=== PATIENT | male | born 1965 | race Caucasian/White ===

== ENCOUNTER 2023-11-12 05:42 | Emergency (ER) | payer BC ==
[2023-11-12 06:14] LABS: BASOPHILS # (AUTO) 0.1 10^3/uL (0.0-0.1); BASOPHILS % (AUTO) 0.7 %; EOSINOPHILS # (AUTO) 0.1 10^3/uL (0.0-0.7); EOSINOPHILS % (AUTO) 1.3 %; HCT - HEMATOCRIT 43.4 % (42.0-52.0); HGB - HEMOGLOBIN 14.3 g/dL (14.0-18.0); LYMPHOCYTES # (AUTO) 0.6 10^3/uL (1.5-3.5); LYMPHOCYTES % (AUTO) 6.8 %; MEAN CORPUSCULAR HEMOGLOBIN 29.9 pg (27.0-31.0); MEAN CORPUSCULAR HGB CONC 32.9 g/dL (32.0-36.0); MEAN CORPUSCULAR VOLUME 90.8 fL (80.0-94.0); MEAN PLATELET VOLUME 11.5 fL (7.4-11.4); MONOCYTES # (AUTO) 0.7 10^3/uL (0.0-1.0); MONOCYTES % (AUTO) 8.1 %; NEUTROPHILS # (AUTO) 6.9 10^3/uL (1.5-6.6); NEUTROPHILS % (AUTO) 82.9 %; PLT - PLATELET COUNT 176 10^3/uL (130-450); RED BLOOD COUNT 4.78 10^6/uL (4.70-6.10); RED CELL DISTRIBUTION WIDTH 13.2 % (12.0-15.0); WHITE BLOOD COUNT 8.3 x10^3/uL (4.8-10.8)
--- NOTE | 2023-11-12 06:17 | ED Physician Documentation ---
PD HPI ABD PAIN - Stated complaint Stated Complaint: ABD PX - Chief complaint Chief Complaint: Abd Pain - History obtained from History obtained from: Patient, Family - History of Present Illness Timing - onset: Enter time (2299), How many days ago (2) Timing - duration: Days (2) Timing - details: Abrupt onset Quality: Sharp, Pain Location: Epigastric Radiation: Chest Improved by: Other (nothing) Associated symptoms: Vomiting Similar symptoms before: Diagnosis (gall bladder problems) Recently seen: Not recently seen - Additional information Additional information: 58-year-old Bean Chandler has developed severe epigastric abdominal pain. He presents to the emergency department doubled over in pain and reports that this started at 2300 on Sunday. He indicates that he was down in [place] had lobster and oysters as well as some shrimp when he came home. He did have alcohol as well. He does not have a history of ulcer but he does have a history of prior cholecystectomy as well as appendectomy. Review of Systems Constitutional: denies: Fever Ears: denies: Ear pain Nose: denies: Congestion Throat: denies: Sore throat Respiratory: denies: Dyspnea, Cough GI: reports: Abdominal Pain, Nausea, Vomiting : denies: Dysuria, Frequency Skin: denies: Rash Musculoskeletal: denies: Neck pain, Back pain, Extremity pain Neurologic: denies: Generalized weakness, Focal weakness, Numbness PD PAST MEDICAL HISTORY - Past Medical History Cardiovascular: Arrhythmia, Other Endocrine/Autoimmune: Type 2 diabetes Psych: Depression Musculoskeletal: Gout Other Past Medical History: SVT - Past Surgical History Past Surgical History: Yes General: Cholecystectomy, Appendectomy - Present Medications Home Medications: Ambulatory Orders Medication Instructions Recorded Confirmed Bupropion HCl [Wellbutrin] 300 mg PO DAILY 04/27/14 11/12/23 Metformin HCl [Metformin ER 500 mg PO DAILY 11/12/23 11/12/23 Osmotic] allopurinoL [Allopurinol] 450 mg PO DAILY 11/12/23 11/12/23 - Allergies Allergies/Adverse Reactions: Allergies Allergy/AdvReac Type Severity Reaction Status Date / Time No Known Drug Allergies Allergy Verified 11/12/23 05:50 - Social History Does the pt smoke?: No Smoking Status: Never smoker Does the pt drink ETOH?: No Does the pt have substance abuse?: No - Immunizations Immunizations are current?: Yes PD ED PE NORMAL - Vitals Vital signs reviewed: Yes (Hypertensive mild) - General General: Alert and oriented X 3, Well developed/nourished, Other (58-year-old male laying in the position clutching his abdomen and moaning in pain) - HEENT HEENT: Atraumatic, PERRL, EOMI, Other (Dry mucous membranes) - Neck Neck: Supple, no meningeal sign, No bony TTP - Cardiac Cardiac: RRR, No murmur - Respiratory Respiratory: No respiratory distress, Clear bilaterally - Abdomen Abdomen: Normal bowel sounds, Soft, Non distended, No organomegaly, Other (There is specific epigastric tenderness to palpation without guarding or rebound.) - Back Back: No CVA TTP, No spinal TTP - Derm Derm: Normal color, Warm and dry, No rash - Extremities Extremities: No deformity, No edema - Neuro Neuro: Alert and oriented X 3, email campaign manager 2-12 intact, No motor deficit, No sensory deficit, Normal speech Eye Opening: Spontaneous Motor: Obeys Commands Verbal: Oriented GCS Score: 15 - Psych Psych: Normal mood, Normal affect Results - Vitals Vitals: Vital Signs - 24 hr 11/12/23 05:51 Temperature 36.4 C L Heart Rate 74 Respiratory 16 Rate Blood Pressure 149/77 H O2 Saturation 100 Oxygen O2 Source Room air - Labs Labs: Laboratory Tests 11/12/23 11/12/23 11/12/23 06:08 06:08 06:58 WBC 8.3 RBC 4.78 Hgb 14.3 Hct 43.4 MCV 90.8 MCH 29.9 MCHC 32.9 RDW 13.2 Plt Count 176 MPV 11.5 H Neut # (Auto) 6.9 H Lymph # (Auto) 0.6 L [place] # (Auto) 0.7 Eos # (Auto) 0.1 Baso # (Auto) 0.1 Absolute Nucleated RBC 0.00 Nucleated RBC % 0.0 Sodium 136 Potassium 3.9 Chloride 98 L Carbon Dioxide 26 Anion Gap 12.0 BUN 11 Creatinine 0.9 Estimated GFR (MDRD) 86 L Glucose 252 H Calcium 10.0 Total Bilirubin 4.9 H AST 637 H Alkaline Phosphatase 209 H Total Protein 7.2 Albumin 4.6 Globulin 2.6 Albumin/Globulin Ratio 1.8 Lipase 247 H Urine Color DARK YELLOW Urine Clarity CLEAR Urine pH 6.0 Ur Specific Concepcion >=1.030 H Urine Protein TRACE Urine Glucose (UA) 500 H Urine Ketones >=80 H Urine Occult Blood NEGATIVE Urine Nitrite NEGATIVE Urine Bilirubin LARGE H Urine Urobilinogen 2 H Ur Leukocyte Esterase NEGATIVE Ur Microscopic Review NOT INDICATED Urine Culture Comments NOT INDICATED PD Medical Decision Making - ED course Complexity details: reviewed old records, reviewed results, re-evaluated patient, considered differential, d/w patient, d/w family Reviewed Lab Results: We reviewed a complete blood count showing a normal white blood cell count normal hemoglobin hematocrit and platelets a urinalysis shows a specific gravity of 1.030 with glucose present ketones present and large bilirubin. Chemistries are pending with a lipase elevated to 247. Bili is elevated at 4.9. ED course: 58-year-old male with acute epigastric pain and vomiting is given a GI cocktail consisting of viscous lidocaine Mylanta in [place]af[place] with relief of his pain. He has had vomiting he has not noted any blood in the vomit and he has not noted any dark or tarry stool.He appears dehydrated and is administered intravenous saline as well as Protonix. The patient has improvement in his pain but his biochemical profile is concerning for potential of common duct stone and for pancreatitis. Further workup is indicated. An MRCP is ordered and care is turned over to Dr. Marco Salcedo. Departure - Departure Forms: PCP List
[2023-11-12] MEDS: ONDANSETRON 4 MG/2 ML VIAL IVP STA ×2 (06:23→13:22)
[2023-11-12] MEDS: LIDOCAINE VISCOUS 2% 15 ML ORAL SYRINGE MM STA (06:24)
[2023-11-12] MEDS: SUCRALFATE 1 GM/10 ML UDC PO STA (06:24)
[2023-11-12] MEDS: MAG HYDROX/AL HYDROX/SIMETH 30 ML UDC PO STA (06:24)
[2023-11-12] MEDS: SODIUM CHLORIDE 0.9% 1,000 ML IV STA (06:52)
[2023-11-12] MEDS: PANTOPRAZOLE 40 MG VIAL IVP STA (06:53)
[2023-11-12 07:04] LABS: BILIRUBIN,URINE LARGE (NEGATIVE); GLUCOSE, URINE (UA) 500 mg/dL (NEGATIVE); KETONES,URINE (UA) >=80 mg/dL (NEGATIVE); LEUKOCYTE ESTERASE, URINE NEGATIVE (NEGATIVE); NITRITE,URINE NEGATIVE (NEGATIVE); OCCULT BLOOD,URINE NEGATIVE (NEGATIVE); PROTEIN,URINE TRACE mg/dL (NEGATIVE); UROBILINOGEN,URINE 2 E.U./dL (NORMAL)
[2023-11-12 07:07] LABS: CLARITY,URINE CLEAR (CLEAR)
[2023-11-12 07:39] LABS: ALBUMIN 4.6 g/dL (3.2-5.5); ALBUMIN/GLOBULIN RATIO 1.8 (1.0-2.2); BILIRUBIN,TOTAL 4.9 mg/dL (0.2-1.0); CREATININE 0.9 mg/dL (0.6-1.3); POTASSIUM 3.9 mmol/L (3.5-4.5); TOTAL PROTEIN 7.2 g/dL (6.4-8.9)
[2023-11-12] MEDS ORDERED: GADOTERATE MEGLUMINE 5 MMOL/10 ML VIAL ONE (08:24)
[2023-11-12] MEDS ORDERED: GADOTERATE MEGLUMINE 10 MMOL/20 ML VIAL ONE (08:24)
[2023-11-12 13:17] LABS: BASOPHILS % (AUTO) 0.6 %; EOSINOPHILS % (AUTO) 0.6 %; HCT - HEMATOCRIT 42.3 % (42.0-52.0); HGB - HEMOGLOBIN 13.8 g/dL (14.0-18.0); LYMPHOCYTES # (AUTO) 0.9 10^3/uL (1.5-3.5); LYMPHOCYTES % (AUTO) 12.7 %; MEAN CORPUSCULAR HEMOGLOBIN 29.8 pg (27.0-31.0); MEAN CORPUSCULAR HGB CONC 32.6 g/dL (32.0-36.0); MEAN CORPUSCULAR VOLUME 91.4 fL (80.0-94.0); MEAN PLATELET VOLUME 11.9 fL (7.4-11.4); MONOCYTES # (AUTO) 0.5 10^3/uL (0.0-1.0); MONOCYTES % (AUTO) 7.4 %; NEUTROPHILS # (AUTO) 5.3 10^3/uL (1.5-6.6); NEUTROPHILS % (AUTO) 78.6 %; PLT - PLATELET COUNT 155 10^3/uL (130-450); RED BLOOD COUNT 4.63 10^6/uL (4.70-6.10); RED CELL DISTRIBUTION WIDTH 13.2 % (12.0-15.0); WHITE BLOOD COUNT 6.8 x10^3/uL (4.8-10.8)
--- NOTE | 2023-11-12 13:28 | MRI Report ---
PROCEDURE: MRCP W/WO INDICATIONS: epigastric pain biochemical profile suggests obstu CONTRAST: 20.6 clariscan TECHNIQUE: Coronal ultra fast SE through the abdomen, axial 2-D spoiled GE in- and [id number], and breath-hold T2 FSE with fat saturation through the biliary system and pancreas. Oblique coronal and axial thin- slice ultra fast SE, radial thick-slab ultra fast SE centered on the extrahepatic bile ducts. COMPARISON: None FINDINGS: Image quality: Excellent. Gallbladder: Absent. Biliary tree: Nondilated, accounting for a postcholecystectomy state. Pancreas: There is hypointense signal in the pancreatic body, with associated distal pancreatic ducta l dilation (series 15, image 51). This region measures approximately 5.9 x 1.9 cm. Low T1 signal thro ughout the pancreas. No adjacent vessel narrowing. Lung bases and heart: Unremarkable. Liver: No solid mass. Spleen: No splenomegaly. Adrenals: No adrenal nodule. Kidneys and ureters: No hydronephrosis. No renal cystic lesion which requires follow up. No solid mas s. Bowel and peritoneum: No bowel distension. No pathologic free fluid. Diverticulosis without evidence of diverticulitis. Lymph nodes: No central or retroperitoneal adenopathy. Vessels: No infrarenal aortic aneurysm. Bones: No aggressive osseous abnormality. Other: No significant ventral hernia. IMPRESSION: Region of hypointensity in the pancreatic body measuring 5.9 x 1.9 cm, with distal pancreatic tail di lation. Obstructing mass or inflammatory process is suspected, with an inflammatory process being mor e likely in the absence of vessel narrowing surrounding this region. Recommend GI referral for possib le endoscopic evaluation. Cholecystectomy. No intrahepatic or extrahepatic biliary dilation, accounting for a postcholecystecto my state. Reviewed by: Refugio Le MD on 11/12/2023 1:27 PM PST Approved by: Refugio Le MD on 11/12/2023 1:27 PM PST Station ID: [id number]
[2023-11-12 13:38] LABS: LIPASE 99 U/L (11-82)
[2023-11-12 13:39] LABS: ALBUMIN 4.2 g/dL (3.2-5.5); ALBUMIN/GLOBULIN RATIO 1.8 (1.0-2.2); ALKALINE PHOSPHATASE 194 IU/L (42-121); ALT ALANINE AMINOTRANSFERASE > 5000 IU/L (10-60); AST ASPARTATE AMINOTRANSFERASE 421 IU/L (10-42); BILIRUBIN,TOTAL 1.8 mg/dL (0.2-1.0); BUN - BLOOD UREA NITROGEN 10 mg/dL (6-20); CALCIUM 9.5 mg/dL (8.5-10.3); CARBON DIOXIDE - CO2 29 mmol/L (21-32); CHLORIDE 103 mmol/L (101-111); CREATININE 0.7 mg/dL (0.6-1.3); GFR - MDRD 115 (>89); GLUCOSE 205 mg/dL (74-104); SODIUM 137 mmol/L (135-145); TOTAL PROTEIN 6.5 g/dL (6.4-8.9)
--- NOTE | 2023-11-12 14:39 | ED Physician Documentation ---
ED Addendum - Addendum Addendum: 11/12/23 14:39 I took over the care of this 58-year-old gentleman at approximately 2 PM pending MRCP read which is done now showing a mass in the pancreatic body measuring almost 6 x 2 cm. His lipase is gone down, but his ALT went up quite significantly. His bilirubin has gone down. He is pain-free now and I discussed the results with him. He has been seen by [facility] before and I will reach out to them for consult plus or minus transfer depending on results of consultation. 11/12/23 15:[address] Villatoro, GI at [place] and we went over the presentation, lab results including increased ALT and the MRCP results and does recommend he get transferred down to the hospitalist service for further evaluation and treatment at [facility], not here since we do not have GI. 11/12/23 18:21 Graciously accepted to [facility] of the care of Elvira Quinteros, hospitalist at this time. Cobras are written and completed and he is stable for transport. Disposition: Transferred to [facility] for specialty care. Condition: Stable Diagnosis: 1. Pancreatic mass 2. Biliary obstruction
[2023-11-12] MEDS: GADOTERATE MEGLUMINE 10 MMOL/20 ML VIAL IVP ONE (16:19)
[2023-11-12 22:08] VITALS: BP 138/82; O2SAT 100
== END 2023-11-12 22:00 | disposition short-term general hospital (02) ==
LOC: ED 05:42
DX: K86.9 Disease of pancreas, unspecified (principal); K83.1 Obstruction of bile duct
CPT/HCPCS: 36415; 74183; 80053; 81003; 83690; 85025; 96361; 96374; 96375; 96376; 99285; A9270; A9575; 81001; 87086

== ENCOUNTER 2023-11-12 21:56 | Outpatient (CLI) | payer BC | END 2023-11-12 23:59 | disposition short-term general hospital (02) | LOC: EMS 21:56 | PROVIDERS: ATTEND Emergency Medicine | DX: K86.9 Disease of pancreas, unspecified (principal); R10.13 Epigastric pain | CPT/HCPCS: A0425; A0429 ==

== ENCOUNTER 2024-01-12 10:25 | Emergency (ER) | payer BC ==
[2024-01-12 10:56] LABS: BASOPHILS # (AUTO) 0.1 10^3/uL (0.0-0.1); BASOPHILS % (AUTO) 0.7 %; EOSINOPHILS # (AUTO) 0.3 10^3/uL (0.0-0.7); EOSINOPHILS % (AUTO) 2.5 %; HCT - HEMATOCRIT 43.6 % (42.0-52.0); HGB - HEMOGLOBIN 13.7 g/dL (14.0-18.0); LYMPHOCYTES # (AUTO) 1.4 10^3/uL (1.5-3.5); LYMPHOCYTES % (AUTO) 13.4 %; MEAN CORPUSCULAR HGB CONC 31.4 g/dL (32.0-36.0); MEAN CORPUSCULAR VOLUME 92.2 fL (80.0-94.0); MEAN PLATELET VOLUME 11.3 fL (7.4-11.4); MONOCYTES # (AUTO) 0.6 10^3/uL (0.0-1.0); MONOCYTES % (AUTO) 5.9 %; NEUTROPHILS # (AUTO) 7.8 10^3/uL (1.5-6.6); NEUTROPHILS % (AUTO) 77.2 %; PLT - PLATELET COUNT 202 10^3/uL (130-450); RED BLOOD COUNT 4.73 10^6/uL (4.70-6.10); RED CELL DISTRIBUTION WIDTH 13.3 % (12.0-15.0); WHITE BLOOD COUNT 10.1 x10^3/uL (4.8-10.8)
[2024-01-12 11:17] LABS: ALBUMIN 4.6 g/dL (3.2-5.5); ALBUMIN/GLOBULIN RATIO 1.8 (1.0-2.2); BILIRUBIN,TOTAL 1.2 mg/dL (0.2-1.0); CALCIUM 10.1 mg/dL (8.5-10.3); CREATININE 0.8 mg/dL (0.6-1.3); POTASSIUM 3.6 mmol/L (3.5-4.5); TOTAL PROTEIN 7.1 g/dL (6.4-8.9)
[2024-01-12] MEDS: ONDANSETRON 4 MG/2 ML VIAL IVP STA (11:33)
[2024-01-12] MEDS: HYDROmorphone 1 MG/ML CARPUJECT IVP STA (11:33)
--- NOTE | 2024-01-12 11:38 | ED Physician Documentation ---
PD HPI ABD PAIN - Stated complaint Stated Complaint: UPPER ABD PX, CENTER - Chief complaint Chief Complaint: Abd Pain - History obtained from History obtained from: Patient - Additional information Additional information: Patient is a 58-year-old male with a history of chronic pancreatitis and recent diagnosis of possible pancreatic mass presenting with epigastric abdominal pain starting at 830 this morning with nausea. Patient was seen for similar episode in October and had imaging findings concerning for a pancreatic mass and was transferred to [facility]. There he Was seen by GI and recommended for an EUS as an outpatient as his LFTs were improving - EUS was dibe and has had outpatient follow-up at [facility]. [facility] ASSESSMENT/PLAN 01/04/24 Bean Chandler is a 58 year old male with recent diabetes diagnosis who was referred to our clinic for recommendations on abnormal imaging. His case was reviewed in our multidisciplinary clinic this morning, noting there was some discordance between the OSH and internal radiology report, specifically that internally we did not appreciate the pancreatic mass noted on OSH reports. In clinic today, we discussed that his imaging and history appear to be more consistent with chronic pancreatitis, which is correlative with his history of alcohol use in ~2020 when his symptoms were first noted; however, we do not fully understand the report of mucin on his endoscopy report. Given this, we recommended interval imaging and clinic follow-up to discuss results. We noted that he may need another endoscopy but will make the determination following repeat MRI. PD PAST MEDICAL HISTORY - Past Medical History Past Medical History: Yes Cardiovascular: Arrhythmia, Other Endocrine/Autoimmune: Type 2 diabetes Psych: Depression Musculoskeletal: Gout - Past Surgical History Past Surgical History: Yes General: Cholecystectomy, Appendectomy - Present Medications Home Medications: Ambulatory Orders Medication Instructions Recorded Confirmed Bupropion HCl [Wellbutrin] 300 mg PO DAILY 04/27/14 11/12/23 Metformin HCl [Metformin ER 500 mg PO DAILY 11/12/23 11/12/23 Osmotic] allopurinoL [Allopurinol] 450 mg PO DAILY 11/12/23 11/12/23 Ondansetron Odt [Zofran] 4 mg TL Q6H PRN #10 tablet 01/12/24 oxyCODONE [Roxicodone] 5 mg PO Q6H PRN #15 tablet 01/12/24 - Allergies Allergies/Adverse Reactions: Allergies Allergy/AdvReac Type Severity Reaction Status Date / Time No Known Drug Allergies Allergy Verified 01/12/24 10:37 - Social History Does the pt smoke?: No Smoking Status: Never smoker Does the pt drink ETOH?: No Does the pt have substance abuse?: No - Immunizations Immunizations are current?: Yes Results - Vitals Vitals: Vital Signs - 24 hr 01/12/24 01/12/24 01/12/24 10:35 12:52 14:00 Temperature 36.7 C 36.6 C Heart Rate 93 84 82 Respiratory 16 18 16 Rate Blood Pressure 133/72 H 129/70 128/72 O2 Saturation 99 98 100 Oxygen O2 Source Room air - Labs Labs: Laboratory Tests 01/12/24 01/12/24 10:51 10:51 WBC 10.1 RBC 4.73 Hgb 13.7 L Hct 43.6 MCV 92.2 MCH 29.0 MCHC 31.4 L RDW 13.3 Plt Count 202 MPV 11.3 Neut # (Auto) 7.8 H Lymph # (Auto) 1.4 L [place] # (Auto) 0.6 Eos # (Auto) 0.3 Baso # (Auto) 0.1 Absolute Nucleated RBC 0.00 Nucleated RBC % 0.0 Sodium 138 Potassium 3.6 Chloride 102 Carbon Dioxide 29 Anion Gap 7.0 BUN 15 Creatinine 0.8 Estimated GFR (MDRD) 99 Glucose 214 H Calcium 10.1 Total Bilirubin 1.2 H AST 111 H ALT 63 H Alkaline Phosphatase 102 Total Protein 7.1 Albumin 4.6 Globulin 2.5 Albumin/Globulin Ratio 1.8 Lipase 732 H PD Medical Decision Making - ED course Complexity details: reviewed results, re-evaluated patient, d/w patient, d/w family ED course: Patient is a 58-year-old male with Epigastric abdominal pain with nausea - Has had recent symptoms similar to this where he was found to have a questionable lesion on his pancreas and is scheduled for continued follow-up at [facility] [place]. CBC, chemistries were obtained and reviewed. Lipase is elevated in the 700 range. Slight elevation in LFTs. Patient did receive a dose of IV Dilaudid as well as Zofran with resolution of his pain. CT scan of the abdomen pelvis was obtained with findings of early pancreatitis. There is also some wall thickening in the distal colon but patient does not have any tenderness here. Repeat abdominal exam is benign with no pain elicited.Patient is additionally tolerating water here. Patient reports he has a trip planned to [place] and initial flight was scheduled to leave today. He is hoping to reschedule for tomorrow.As his pain has completely resolved here and he is tolerating p.o. in take I feel it is reasonable to trial outpatient management of his pancreatitis. Patient is advised onStrict return precautions for any worsening symptoms and does already have scheduled appointments for follow-up with gastroenterology. Departure - Departure Disposition: 01 Home, Self Care Clinical Impression: Pancreatitis Condition: Stable Instructions: ED Pancreatitis Prescriptions: oxyCODONE [Roxicodone] 5 mg PO Q6H PRN #15 tablet PRN Reason: Pain Ondansetron Odt [Zofran] 4 mg TL Q6H PRN #10 tablet PRN Reason: Nausea / Vomiting Comments: Your testing today shows that you have early pancreatitis. However it seems that your pain has completely resolved and you are drinking fluids without any issue so we have opted to treat you as an outpatient. I Have sent a prescription for pain and nausea medication to [facility] in [place]. I would recommend continuing with a liquid diet today. Please return to the ER though if you develop any worsening symptoms such as intractable pain or continued vomiting. Please continue to have close follow-up with your specialist at [facility] as well as your GI doctor. I am prescribing a short course of narcotic pain medication for you. These are potentially dangerous and addictive medications that should be used carefully. These medications may constipate you. Take an rglm-jdi-lzqalux stool softener (docusate) twice daily with plenty of water while taking these medications. If you go 24 hours without a bowel movement, take [id number]-[id number] miralax, per package instructions. Do not drink or drive while taking these medications. If you received narcotic or sedating medications while in the emergency department, do not drive for 24 hours. Store this medication in a safe, secure place and out of reach of children. It is a violation of federal law to give or sell this medication to another person or to use in a manner other than prescribed. The ED will not refill narcotic prescriptions, including prescriptions lost or stolen. To dispose of unwanted medications: 1. [facility] at [address] in [place] has a medication drop box. They accept prescription medications (in pill form) Sunday through Sunday 9:00 a.m. to 5:00 p.m. 2. The [facility] [employer] accepts prescription medications (in pill form only) for disposal year round. Call for more information. 3. Contact the [facility] for the next [facility] sponsored prescription drug collection event. , [phone], or [phone]; Note that many narcotic pain relievers also contain Tylenol/acetaminophen. Please ensure that your total dose of acetaminophen from all sources does not exceed 3 g (3000 mg) per day. Forms: PCP List Discharge Date/Time: 01/12/24 14:34
[2024-01-12] MEDS ORDERED: iohexoL-300 100 ML VIAL ONE (12:30)
[2024-01-12] MEDS: iohexoL-300 100 ML VIAL IVP ONE (12:50)
--- NOTE | 2024-01-12 12:59 | CT Report ---
PROCEDURE: Abdomen/Pelvis W INDICATIONS: pancreatitis CONTRAST: 100ml omni 300 TECHNIQUE: After the administration of intravenous contrast, a CT scan of the abdomen and pelvis was performed. Images were recorded and evaluated at appropriate window settings. Reformats: coronal and sagittal. F or radiation dose reduction, the following was used: automated exposure control, adjustment of mA and /or kV according to patient size. COMPARISON: Correlation is made with MRCP, 11/12/2023. FINDINGS: Image quality: Diagnostic. Lower chest: Mild dependent atelectasis can be seen. Liver: No solid mass. Gallbladder and biliary tree: Status post cholecystectomy, without biliary dilatation for a cholecyst ectomy patient. Spleen: No splenomegaly. An accessory splenule is incidentally noted along the hilum of the primary spleen. Pancreas: Generalized pancreatic irregularity is seen. No focal mass is identified on these images. T here is irregular dilatation of the pancreatic duct, measuring 7 mm. There is minimal surrounding inf lammatory change. No peripancreatic fluid collections are seen. No findings of pancreatic necrosis. Adrenals: No adrenal nodule. Kidneys and ureters: No hydronephrosis. No renal cystic lesion which requires follow up. No solid mas s. At the inferior pole of the right kidney, there is a nonobstructing stone seen, as on series 4 julita ge [id number], measuring 1 cm and measuring 1800 Hounsfield units. Stomach, bowel and peritoneum: Generalized distal colonic wall thickening can be seen, extending from the splenic flexure through the sigmoid colon. Distal colonic diverticulosis is seen. No free air or significant free fluid can be seen. No peritoneal abscess is seen. The more proximal colon is within normal limits. No dilated loops of small bowel are seen. The stomach demonstrates no significant abnormality. Lymph nodes: No central or retroperitoneal adenopathy. Vessels: No infrarenal aortic aneurysm. PELVIS Reproductive organs: Unremarkable. Bladder: No abnormal wall thickening, accounting for underdistention. Pelvic lymph nodes: No pelvic adenopathy by size criteria. Bones: No aggressive osseous abnormality. Focal L5-S1 degenerative change is seen. Other: No significant ventral or inguinal hernia. IMPRESSION: Minimal inflammatory change can be seen surrounding the pancreas, which is consistent with mild/early pancreatitis. The pancreas itself is abnormal, with generalized irregularity, yet without a meron focal mass seen o n these images. There is irregular dilatation of the pancreatic duct, measuring 7 mm. Moderate clinical thickening can be seen involving the entire distal colon. Please correlate with pot ential infectious and inflammatory causes of colitis. Additional findings: Cholecystectomy, without biliary dilatation Accessory splenule Nonobstructing 1 cm stone at the inferior pole of the right kidney Focal L5-S1 degenerative change Distal colonic diverticulosis, without active diverticulitis. Reviewed by: Maurice Del Rio MD on 01/12/2024 11:57 AM DEB Approved by: Maurice Del Rio MD on 01/12/2024 11:57 AM DEB Station ID: [id number]
[2024-01-12] MEDS: ONDANSETRON ODT 4 MG TABLET TL STA (13:52)
[2024-01-12 14:06] VITALS: BP 128/72; O2SAT 100
== END 2024-01-12 14:34 | disposition home or self-care (01) ==
LOC: ED 10:25
DX: K85.90 Acute pancreatitis without necrosis or infection, unspecified (principal)
CPT/HCPCS: 36415; 74177; 80053; 83690; 85025; 96374; 96375; 99284; J1170; Q0162; Q9967